=== PATIENT | female | born 1950 | race Two or more races ===

== ENCOUNTER 2024-09-11 12:33 | Emergency (ER) | payer OTHER ==
[~2024-09-11] VITALS: Ht 162.6 cm; Wt 52.3 kg
[2024-09-11 12:47] VITALS: TEMP 97.5
[2024-09-11 13:03] LABS: BASOPHILS % (AUTO) 0.9 % (0.0-2.0); HEMATOCRIT 29.1 % (36-46); HEMOGLOBIN 9.4 g/dL (12.0-16.0); LYMPHOCYTES # (AUTO) 0.8 K/uL (1.0-4.8); LYMPHOCYTES % (AUTO) 13.8 % (22.0-44.0); MEAN CORPUSCULAR HEMOGLOBIN 26.7 pg (26.0-34.0); MEAN CORPUSCULAR HGB CONC 32.2 G/dL (31.0-37.0); MEAN CORPUSCULAR VOLUME 83 fL (80-100); MONOCYTES # (AUTO) 0.2 K/uL (0.1-1.0); MONOCYTES % (AUTO) 3.9 % (2.0-9.0); NEUTROPHILS # (AUTO) 4.5 K/uL (1.8-7.7); NEUTROPHILS % (AUTO) 78.4 % (40.0-70.0); PLATELET COUNT (AUTO) 240 K/uL (150-450); WHITE BLOOD COUNT (AUTO) 5.7 K/uL (4.5-11.0)
[2024-09-11 13:12] LABS: ANION GAP 4 mmol/L (8-16); CALCIUM, TOTAL 8.4 mg/dL (8.8-10.5); CARBON DIOXIDE 27 mmol/L (22-29); CHLORIDE 111 mmol/L (98-107); GLOMERULAR FILTR. RATE CALC > 60 mL/min (>60); GLUCOSE,RANDOM 134 mg/dL (70-110); POTASSIUM 3.7 mmol/L (3.5-5.1); SODIUM SERUM 142 mmol/L (136-145); UREA NITROGEN, BLOOD 13 mg/dL (7-18)
[2024-09-11 13:17] LABS: B-TYPE NATRIURETIC PEPTIDE 60 pg/mL (0-100); CREATINE KINASE, TOTAL ONLY 64 U/L (26-192)
[2024-09-11 13:20] LABS: TROPONIN I-HIGH SENSITIVITY 38 ng/L (<51)
[2024-09-11 14:01] VITALS: BP 132/86; PULSE 70; RESP 16; O2SAT 99
== END 2024-09-11 18:27 | disposition short-term general hospital (02) ==
LOC: EMS 12:33
DX: R55 Syncope and collapse (principal); I95.9 Hypotension, unspecified; R53.1 Weakness; R61 Generalized hyperhidrosis; G20.A1 Parkinson's disease without dyskinesia, without mention of fluctuations; F02.80 Dementia in other diseases classified elsewhere, unspecified severity, without behavioral disturbance, psychotic disturbance, mood disturbance, and anxiety; R06.02 Shortness of breath
CPT/HCPCS: 71045; 80048; 82550; 83880; 84484; 85025; 85610; 85730; 93005; 99285; 36415-L1; 36415-TC